=== PATIENT | male | born 1985 | race Caucasian/White ===

== ENCOUNTER → 2023-01-07 15:12 | Outpatient (CLI) | payer OTHER, SELFPAY ==
--- NOTE | 2023-01-07 15:15 | DI.MRI.S_ITS ---
PROCEDURE: MR LUMBAR SPINE WO CON INDICATIONS: LOWER BACK/LUMBAR SPINE PAIN,L LEG PAIN/WEAKNESS TECHNIQUE: Noncontrast sagittal T1 spin echo and T2 fast echo, sagittal STIR, and T2 fast spin echo through the lumbar spine. In cases with scoliosis, additional coronal T2 fast spin echo may be performed. COMPARISON: None. FINDINGS: Image quality: Excellent. Alignment and Curvature: There is normal bony alignment. Bone Marrow: Marrow is of normal overall signal. No acute vertebral body compression fractures. Spinal Cord: Conus medullaris terminates at the L1 level. Visualized cord demonstrates normal signal and size. Paraspinous Soft Tissues: No paravertebral masses. T12-L1: Normal appearance. L1-L2: Normal appearance. L2-L3: Normal appearance. L3-L4: Normal appearance. L4-L5: Normal appearance. L5-S1: Left subarticular disc extrusion impinging the descending left S1 nerve root. No central canal or neural foraminal stenosis. IMPRESSION: At L5-S1, there is a left subarticular disc extrusion which impinges the left descending S1 nerve root. Dictated by: Enrique Damon M.D. on 01/07/2023 at 16:18 Approved by: Enrique Damon M.D. on 01/07/2023 at 16:21
== END ==
PROVIDERS: Referring Provider Chiropractor; Visit Provider Chiropractor
DX: M51.17 Intervertebral disc disorders with radiculopathy, lumbosacral region (principal); M99.13 Subluxation complex (vertebral) of lumbar region; M54.51 Vertebrogenic low back pain
CPT/HCPCS: 72148

== ENCOUNTER 2024-09-30 18:22 | Emergency (ER) | payer OTHER, SELFPAY ==
[2024-09-30 18:30] VITALS: PULSE 81; RESP 18; O2SAT 98
[2024-09-30 18:33] VITALS: BP 162/96; PULSE 86; RESP 18; TEMP 37.1; O2SAT 98; BMI 27.5
--- NOTE | 2024-09-30 18:38 | ED_ITS ---
HPI - Extremity Injury (Lower) General Chief Complaint: Extremity Problem,Nontraumatic Stated Complaint: rt leg swollen from knee to ankle Time Seen by Provider: 09/30/24 18:32 Source: patient Mode of arrival: Ambulatory History of Present Illness HPI Narrative: Patient is a 38-year-old healthy male who presents today with right lower extremity swelling. States that it is for a couple of days. He is active he was 3 kids at home. He does come you in a car [address] sits at a desk what does sometimes walk up to 5 miles at work. No prior history of DVT. No fever or chills. Feels like he has pain or not in the back of his calf. He says that he felt kind of some tightness and then was playing basketball when up for a jump landed in heard a pop. After that swelling started. An ongoing for almost 2 weeks. Related Data Allergies Allergy/AdvReac Type Severity Reaction Status Date / Time No Known Drug Allergies Allergy Verified 09/30/24 18:33 Patient History Social History Smoking Status: Never smoker Smoking Status: Never smoker Exam Initial Vital Signs Initial Vital Signs: Vital Signs Pulse Rate 81 09/30/24 18:30 Respiratory Rate 18 09/30/24 18:30 Pulse Oximetry 98 09/30/24 18:30 GENERAL: Alert pleasant well-appearing 38-year-old male and in [no acute] distress. HEENT: Head atraumatic,EOMI, pupils reactive, face symmetric, [moist] mucous membranes CARDIOVASCULAR: Regular rate and rhythm without murmurs, rubs or gallops. RESPIRATORY: Breath sounds equal bilaterally, no wheezes rales or rhonchi. EXTREMITIES: Normal range of motion, no clubbing or edema. Neurovascularly intact Right lower extremity is definitely more swollen than the left distal pedal pulse intact mildly tender in the calf minimal erythema NEUROLOGICAL: Alert and oriented x4.Normal gait and speech. Cranial nerves II through XII grossly intact. SKIN: Warm, dry, no laceration, no petechiae, no rashes or lesions. Course Orders Ordered: ED Orders 09/30/24 18:38 perip venous low extrem rt Stat Vital Signs Vital signs: Vital Signs - 8 hr 09/30/24 18:30 09/30/24 18:33 09/30/24 20:13 Temperature 98.7 F 98.8 F Pulse Rate 81 86 62 Respiratory Rate 18 18 16 Blood Pressure 162/96 H 128/73 Pulse Oximetry 98 98 99 Oxygen Delivery Method Room Air Room Air MDM - Extremity Injury (Lower) Imaging Data US - DVT: Radiologist's Impression: PROCEDURE: US PERIPH VENOUS LOW EXTREM RT INDICATIONS: swelling evaluate for dvt TECHNIQUE: Real-time imaging, as well as color and pulse Doppler interrogation, were performed of the lower extremity deep veins from the inguinal ligament to the popliteal fossa, with documentation of the visualized calf veins. COMPARISON: None. FINDINGS: The common femoral, femoral, popliteal, and the visualized calf veins are normally compressible, and free of intraluminal thrombus. Color and pulse Doppler demonstrate normal phasic intraluminal flow. There is normal augmentation response to distal compression maneuver. In the medial aspect of the knee there is a nonvascular complex fluid collection measuring approximately 5.3 x 1.5 x 2.0 cm. IMPRESSION: No findings of lower extremity deep venous thrombosis. Complex nonvascular fluid collection in the medial knee measuring up to 5.3 cm. Finding may represent hematoma. Correlate with clinical history. Approved by: Trinity Suresh M.D.,Ph.D. on 09/30/2024 at 19:50 [facility] Narrative Medical decision making narrative: Patient healthy 38-year-old male presenting today with right calf pain. Sounds like he had something and then it burst. Since then he has been having swelling. Ultrasound is negative for DVT, but does show possible hematoma. No evidence of Dickey cyst. Discussion with patient supportive care compression socks elevation ice. If swelling is not going down would consider advanced imaging such as CT or MRI as an outpatient. He was a PCP appointment in 2 days. Given copy of test results Discharge Plan Departure Patient Disposition: Home Clinical Impression: Strain of calf muscle Instructions: DI for Calf Muscle Strain Activity Restrictions/Additional Instructions: *You have been diagnosed with RA calf strain/hematoma *What to do: At this time recommend compression socks elevation ice as needed. I suspect swelling we will start going down in the next week or 2. If swelling is not going down still having pain we would consider outpatient imaging such as a CT scan with contrast or MRI *Continue to take medications as directed Motrin 600 mg every 6 hours for [id number] Tylenol 1000 mg every 6 hours for [id number] pain *Follow up with your primary care provider in 2-3 days or call [phone] *Return to ER if you should have increasing pain swelling redness or any new, worsening or concerning symptoms Referrals: Chip Santiago ND [Primary Care Provider] - Stand Alone Forms: Patient Portal/API/Survey
[2024-09-30 20:13] VITALS: BP 128/73; PULSE 62; RESP 16; TEMP 37.1; O2SAT 99
== END 2024-09-30 20:14 | disposition home or self-care (01) ==
PROVIDERS: Emergency Provider Emergency Medicine; PCP Naturopath
DX: S86.911A Strain of unspecified muscle(s) and tendon(s) at lower leg level, right leg, initial encounter (principal)
CPT/HCPCS: 93971; 99281; 99283

== ENCOUNTER → 2024-10-21 18:09 | Outpatient (CLI) | payer OTHER, SELFPAY ==
--- NOTE | 2024-10-21 18:11 | DI.MRI.S_ITS ---
PROCEDURE: MR KNEE RT WO CON INDICATIONS: pain in right calf and swelling TECHNIQUE: Noncontrast sagittal PD fast spin echo and T2 fast spin echo with fat saturation, sagittal 3-D FLASH with fat saturation; coronal T1 spin echo and PD fast spin echo with fat saturation, and axial PD fast spin echo with fat saturation through the knee. COMPARISON: None. FINDINGS: Image quality: Excellent. Menisci: There is mild increased T2 weighted signal in the posterior horn of the medial meniscus but does not appear to exit to a surface commonly mild degenerative globular signal. The anterior horn of the medial meniscus is mildly displaced anteriorly and on the coronal images the mid body of the medial meniscus is displaced mildly medially. Anterior and posterior horns of the lateral meniscus are grossly normal. Cruciate ligaments: The anterior and posterior cruciate ligaments appear intact. Medial structures: Moderate popliteal cyst likely partially ruptured into the surrounding soft tissues measures up to approximately 9 centimeters cc by 5 centimeters transverse by 3.5 centimeters AP maximal dimensions. There is edema and irregularity suggesting injury/partial tear versus related to partially ruptured popliteal cyst in the anterior-medial aspect of the gastrocnemius muscle, medial head (axial series 17, images 42-60). Mild to moderate subcutaneous edema medially and [id number] increased T2 weighted signal/edema surrounding the medial collateral ligament and medial patellar retinaculum. The medial collateral ligament appears intact. The posterior oblique ligament, semimembranosus tendon insertions, oblique popliteal ligament, and meniscocapsular junction appear intact. Visualized portions of the pes anserinus tendons appear normal. No abnormal bursal fluid. Lateral structures: Mild increased T2 weighted signal and thickening of the popliteus tendon, proximal aspect of the lateral collateral ligament and in the popliteofibular ligament some of which may be chronic or related to injury/strain. The long and short heads of the biceps femoris tendon appear intact. Iliotibial band appears normal. Anterior structures: The quadriceps and patellar tendons appear intact. Patellar alignment is normal. No femoral trochlear dysplasia or ventral trochlear prominence. Bones and cartilage: Mild diffuse cartilaginous thinning in the medial greater than lateral compartment. Patellar cartilage is within normal limits. Joint space: Moderate knee joint effusion. IMPRESSION: Large popliteal cyst partially ruptured into the adjacent soft tissues and possibly into the medial head of the gastrocnemius muscle versus muscle injury/strain and partial tear. Mild signal changes surrounding the medial and lateral collateral ligaments some of which may be chronic. Moderate knee joint effusion. Minimal signal changes in the posterior horn of the medial meniscus more likely mild globular degenerative signal than tear. Dictated by: Roscoe Dejesus M.D. on 10/23/2024 at 8:39 Approved by: Roscoe Dejesus M.D. on 10/23/2024 at 9:06
== END ==
PROVIDERS: PCP Naturopath; Referring Provider Naturopath; Visit Provider Naturopath
DX: M71.21 Synovial cyst of popliteal space [Baker], right knee (principal); M25.461 Effusion, right knee; R22.41 Localized swelling, mass and lump, right lower limb
CPT/HCPCS: 73721